=== PATIENT | female | born 1990 | race Two or more races ===

== ENCOUNTER 2024-07-24 09:07 | Emergency (ER) | payer OTHER ==
[~2024-07-24] VITALS: Ht 162.6 cm; Wt 54.4 kg
[2024-07-24] MEDS ORDERED: TETRACAINE HCL 20 DR/ML DROPS OP ONE (10:15)
== END 2024-07-24 11:35 | disposition home or self-care (01) ==
LOC: ER 09:07
DX: S05.01XA Injury of conjunctiva and corneal abrasion without foreign body, right eye, initial encounter (principal)